=== PATIENT | male | born 1945 | race Caucasian/White ===

== ENCOUNTER → 2019-01-24 | Outpatient (CLI) | payer OTHER ==
--- NOTE | 2019-01-24 10:38 | RADIOLOGY REPORT (SQ) ---
EXAM DESCRIPTION: CT SOFT TISSUE NECK WITHOUT COMPLETED DATE/TIME: 01/24/2019 10:23 am REASON FOR STUDY: DYSPNEA/EMPHYSEMA, UNSPECIFIED R06.00 DYSPNEA, UNSPECIFIED J43.9 EMPHYSEMA, UNSP ECIFIED A31.0 PULMONARY MYCOBACTERIAL INFECTION COMPARISON: None. TECHNIQUE: Noncontrast scanning from skull base through lung apices with review of bone, soft tissue and lung windows. Reconstructed coronal and sagittal MPR images reviewed. All images stored on PAC S. All CT scanners at this facility use dose modulation, iterative reconstruction, and/or weight based d osing when appropriate to reduce radiation dose to as low as reasonably achievable (ALARA). [facility]: Dose Right [facility]: CareDose [facility]: Dose Right [facility]: Teradose 4D [facility]: [employer] RADIATION DOSE: mGy. LIMITATIONS: The study is limited by patient motion. FINDINGS: SKULL BASE: Intact. MAJOR SALIVARY GLANDS: No solid or cystic masses. No inflammatory changes. LYMPHADENOPATHY: No adenopathy. MUCOSAL MASSES OR ASYMMETRY: No mucosal masses or asymmetry. LARYNX/CORDS: No abnormal findings. LUNG APICES: There is a cavitary mass in the right lung apex. The patient has a history of pulmonary mycobacterial infection. BONES: There are degenerative changes in the cervical spine. THYROID: Normal size. No masses. PARANASAL SINUSES: Mild right-sided sphenoid air cell disease. OTHER: No other significant finding. IMPRESSION: Cavitary mass in the right lung apex. No acute findings in the neck on this non contras tanya study. The study is limited by patient motion. TECHNICAL DOCUMENTATION: JOB ID: [id number] Quality ID # [id number]: Final reports with documentation of one or more dose reduction techniques (e.g., Au tomated exposure control, adjustment of the mA and/or kV according to patient size, use of iterative reconstruction technique) 2010 [email or web address]- All Rights Reserved Reading location - IP/workstation name: [email or web address]
--- NOTE | 2019-01-24 10:42 | RADIOLOGY REPORT (SQ) ---
EXAM DESCRIPTION: CT CHEST WITHOUT COMPLETED DATE/TIME: 01/24/2019 10:23 am REASON FOR STUDY: DYSPNEA/EMPHYSEMA, UNSPECIFIED R06.00 DYSPNEA, UNSPECIFIED J43.9 EMPHYSEMA, UNSP ECIFIED A31.0 PULMONARY MYCOBACTERIAL INFECTION COMPARISON: None. TECHNIQUE: CT scan performed of the chest without intravenous contrast. Images reviewed with lung, soft tissue and bone windows. Reconstructed coronal and sagittal MPR images reviewed. All images st ored on PACS. All CT scanners at this facility use dose modulation, iterative reconstruction, and/or weight based d osing when appropriate to reduce radiation dose to as low as reasonably achievable (ALARA). [facility]: Dose Right [facility]: CareDose [facility]: Dose Right [facility]: Teradose 4D [facility]: [employer] RADIATION DOSE: CT Rad equipment meets quality standard of care and radiation dose reduction techniq ues were employed. CTDIvol: 3.0 mGy. DLP: 137 mGy-cm. mGy. LIMITATIONS: No technical limitations. FINDINGS: LUNGS AND PLEURA: There is severe bilateral emphysematous changes. There is a cavitary ma ss in the right upper lobe. The cavitary mass measures 5.4 x 3.8 cm. There is a central solid compo nent measured 3.8 x 1.7 cm. There is a small cavitary lesion in the left upper lobe measured 1.6 cm. There is a small cavitary lesion in the right base measured 9.6 mm. There is bronchiectasis most m arked in the right upper lobe. HILAR AND MEDIASTINAL STRUCTURES: No identified masses or abnormal nodes. No obvious aneurysm. HEART AND VASCULAR STRUCTURES: The ascending aorta is dilated measured 4.6 x 4.6 cm. UPPER ABDOMEN: No significant findings. Limited exam. THYROID AND OTHER SOFT TISSUES: No masses. No adenopathy. BONES: No significant finding. HARDWARE: None in the chest. OTHER: No other significant findings. IMPRESSION: 1. COPD most marked in the lung apices. 2. Large cavitary mass in the right lung apex measured 5.4 x 3.8 cm. The patient has a history of T B. 3. 1.6 cm cavitary mass in the left upper lobe. 9.6 mm cavitary lesion in the right lung base anter iorly. TECHNICAL DOCUMENTATION: JOB ID: [id number] Quality ID # [id number]: Final reports with documentation of one or more dose reduction techniques (e.g., Au tomated exposure control, adjustment of the mA and/or kV according to patient size, use of iterative reconstruction technique) 2010 [email or web address]- All Rights Reserved Reading location - IP/workstation name: [email or web address]
== END ==
LOC: RAD 09:48
PROVIDERS: ATTEND Internal Medicine Pulmonary Disease
DX: J43.9 Emphysema, unspecified (principal); R06.00 Dyspnea, unspecified; A31.0 Pulmonary mycobacterial infection
CPT/HCPCS: 70490; 71250

== ENCOUNTER → 2019-02-25 | Outpatient (CLI) | payer MEDICARE, OTHER | LOC: LAB 14:29 | PROVIDERS: ATTEND Internal Medicine Pulmonary Disease | DX: A31.0 Pulmonary mycobacterial infection (principal) | CPT/HCPCS: 87015; 87070; 87077; 87116; 87186; 87205; 87206 ==

== ENCOUNTER 2019-03-19 09:15 | Day surgery (SDC) | payer OTHER ==
[~2019-03-19 09:15] MED LIST: KETOROLAC TROMETHAMINE 0.45% 4 DROP/0.4 ML DROPERETTE OD PRN; MIDAZOLAM 2 MG/2 ML INJ ONE
[2019-03-19] MEDS: CYCLOPENTOLATE 0.2%/PHENYLEPHRINE 1% OPH SOLN 2 ML OD PRN ×3 (09:50→10:16)
[2019-03-19] MEDS: TROPICAMIDE 1% OPH SOLN 3 ML OD PRN ×3 (09:50→10:16)
[2019-03-19] MEDS: BESIFLOXACIN HCL 0.6% OPH SUSP 5 ML BOTTLE OD PRN ×4 (09:51→10:54)
[2019-03-19] MEDS: TETRACAINE HCL 0.5% OPH SOLN 4 ML OD PRN ×4 (09:52→10:25)
[2019-03-19] MEDS ORDERED: ALBUTEROL SULFATE 0.083% NEB 2.5 MG/3 ML AMPUL NEB ONE (10:06)
[2019-03-19] MEDS: LIDOCAINE 1% INJ-PF (10 MG/ML) 30 ML SDV ONE ×2 (10:41)
[2019-03-19] MEDS: CHONDR SU A NA/HYALUR INTRAOC KIT (SURGICARE) ONE ×2 (10:41)
[2019-03-19] MEDS: EPINEPHRINE INJ/PF 1 MG/1 ML AMPULE ONE ×2 (10:41)
[2019-03-19] MEDS: DORZOLAMIDE HCL 2%/TIMOLOL MALEAT 0.5% OPH SOLN 10 ML OD PRN ×2 (10:54)
[2019-03-19] MEDS: TOBRAMYCIN SULFATE/DEXAMETH OPH OINTMENT 3.5 GM ONE ×2 (10:54)
== END 2019-03-19 11:43 | disposition home or self-care (01) ==
LOC: SC 09:15
PROVIDERS: ATTEND Ophthalmology
DX: H25.11 Age-related nuclear cataract, right eye (principal); J44.9 Chronic obstructive pulmonary disease, unspecified; I10 Essential (primary) hypertension; E78.00 Pure hypercholesterolemia, unspecified; I48.91 Unspecified atrial fibrillation; E05.90 Thyrotoxicosis, unspecified without thyrotoxic crisis or storm; Z79.82 Long term (current) use of aspirin; Z79.01 Long term (current) use of anticoagulants; Z79.899 Other long term (current) drug therapy; F17.210 Nicotine dependence, cigarettes, uncomplicated
CPT/HCPCS: 66984; V2632; J2250; J3490 ×4; J0171; 142

== ENCOUNTER 2019-04-02 07:38 | Day surgery (SDC) | payer OTHER ==
[~2019-04-02 07:38] MED LIST changes: +CHONDR SU A NA/HYALUR INTRAOC KIT (SURGICARE) ONE; +DORZOLAMIDE HCL 2%/TIMOLOL MALEAT 0.5% OPH SOLN 10 ML OS PRN; +EPINEPHRINE INJ/PF 1 MG/1 ML AMPULE ONE; -KETOROLAC TROMETHAMINE 0.45% 4 DROP/0.4 ML DROPERETTE OD PRN; +KETOROLAC TROMETHAMINE 0.45% 4 DROP/0.4 ML DROPERETTE OS PRN; +LIDOCAINE 1%/PHENYLEPHRINE 1.5% 1 ML VIAL ONE; +TOBRAMYCIN SULFATE/DEXAMETH OPH OINTMENT 3.5 GM ONE
[2019-04-02] MEDS: TETRACAINE HCL 0.5% OPH SOLN 4 ML OS PRN ×3 (08:02→08:34)
[2019-04-02] MEDS: TROPICAMIDE 1% OPH SOLN 3 ML OS PRN ×3 (08:03→08:24)
[2019-04-02] MEDS: BESIFLOXACIN HCL 0.6% OPH SUSP 5 ML BOTTLE OS PRN ×3 (08:03→09:02)
[2019-04-02] MEDS: CYCLOPENTOLATE 0.2%/PHENYLEPHRINE 1% OPH SOLN 2 ML OS PRN ×3 (08:03→08:24)
[2019-04-02] MEDS ORDERED: ALBUTEROL SULFATE 0.083% NEB 2.5 MG/3 ML AMPUL NEB ONE (08:12)
== END 2019-04-02 09:34 | disposition home or self-care (01) ==
LOC: SC 07:38
PROVIDERS: ATTEND Ophthalmology
DX: H25.12 Age-related nuclear cataract, left eye (principal); Z98.41 Cataract extraction status, right eye; J44.9 Chronic obstructive pulmonary disease, unspecified; I10 Essential (primary) hypertension; E78.00 Pure hypercholesterolemia, unspecified; I48.91 Unspecified atrial fibrillation; E05.90 Thyrotoxicosis, unspecified without thyrotoxic crisis or storm; F17.210 Nicotine dependence, cigarettes, uncomplicated; Z79.82 Long term (current) use of aspirin; Z79.02 Long term (current) use of antithrombotics/antiplatelets; Z79.899 Other long term (current) drug therapy
CPT/HCPCS: 66984; 00142; V2632; J2250; J3490 ×3; J0171; J2370; 142